=== PATIENT | female | born 1975 | race African-American/Black ===

== ENCOUNTER 2024-10-16 11:34 | Outpatient (CLI) | payer OTHER, SELFPAY | END 2024-10-16 11:35 | disposition home or self-care (01) | LOC: AMB 10-20 12:49 | PROVIDERS: Visit Provider Emergency Medicine Emergency Medical Services | DX: S49.92XA Unspecified injury of left shoulder and upper arm, initial encounter (principal); V47.0XXA Car driver injured in collision with fixed or stationary object in nontraffic accident, initial encounter; Y92.410 Unspecified street and highway as the place of occurrence of the external cause | CPT/HCPCS: A0998 ==